=== PATIENT | male | born 1990 | race Caucasian/White ===

== ENCOUNTER 2016-05-18 18:58 | Emergency (ER) | payer OTHER ==
[~2016-05-18] VITALS: Ht 177.8 cm; Wt 80.5 kg
[2016-05-18 21:05] VITALS: BP 128/70
== END 2016-05-18 21:05 | disposition home or self-care (01) ==
LOC: ED 18:58
DX: N39.0 Urinary tract infection, site not specified (principal); J11.1 Influenza due to unidentified influenza virus with other respiratory manifestations